=== PATIENT | female | born 1965 | race African-American/Black ===

== ENCOUNTER 2018-08-08 18:27 | Emergency (ER) | payer MEDICAID ==
[~2018-08-08] VITALS: Ht 172.7 cm; Wt 86.0 kg
[~2018-08-08 18:27] MED LIST: BENADRYL; HUM10VIA6; NEURONTIN
[2018-08-08] MEDS ORDERED: SODIUM CHLORIDE 0.9% 1,000 ML IV ONE ×2 (19:30)
[2018-08-08] MEDS ORDERED: INSULIN REGULAR (HUMULIN R) 300UNITS/3ML IV ONE (19:30)
[2018-08-08 20:17] LABS: BASOPHILS % 0.8 % (0.0-2.0); EOSINOPHILS % 3.8 % (0.0-5.0); HEMATOCRIT. 35.8 % (36.0-48.0); HEMOGLOBIN. 11.9 g/dL (12.0-16.0); LYMPHOCYTES % 21.7 % (20.0-50.0); MEAN CORPUSCULAR HEMOGLOBIN 27.9 pg (28.0-32.0); MEAN CORPUSCULAR VOLUME 84.2 fL (81.0-99.0); MEAN PLATELET VOLUME 10.7 fl (7.4-10.4); MONOCYTES % 6.1 % (2.0-8.0); NEUTROPHILS % 67.6 % (40.0-76.0); PLATELET 220 x1000/uL (130-400); RED BLOOD CELL COUNT 4.25 mill/uL (4.2-5.4); RED CELL DISTRIBUTION WIDTH 15.3 % (11.6-14.6)
[2018-08-08 20:29] LABS: BETA HYDROXYBUTYRATE 0.1 mMol/L (0.0-0.3)
[2018-08-08 22:34] VITALS: BP 126/78
== END 2018-08-08 22:35 | disposition home or self-care (01) ==
LOC: ER 18:27
DX: E11.65 Type 2 diabetes mellitus with hyperglycemia (principal); Z91.19 Patient's noncompliance with other medical treatment and regimen; E78.00 Pure hypercholesterolemia, unspecified; I10 Essential (primary) hypertension
CPT/HCPCS: 36415; 80048; 82010; 82962; 85025; 96361; 96374; 99283; J1815; J7030

== ENCOUNTER 2019-12-04 08:19 | Emergency (ER) | payer MEDICAID ==
[~2019-12-04] VITALS: Ht 165.1 cm; Wt 100.0 kg
[2019-12-04] MEDS ORDERED: ONDANSETRON HCL 4MG/2ML INJ IV STA (08:41)
[2019-12-04] MEDS ORDERED: MORPHINE SULFATE 4 MG/ML CPJ (NOT FOR IM USE) IV STA (08:41)
[2019-12-04] MEDS ORDERED: SODIUM CHLORIDE 0.9% 1,000 ML IV ONE (08:45)
[2019-12-04 09:16] LABS: BASOPHILS % 0.9 % (0.0-2.0); EOSINOPHILS % 1.8 % (0.0-5.0); HEMATOCRIT. 34.6 % (36.0-48.0); HEMOGLOBIN. 11.3 g/dL (12.0-16.0); LYMPHOCYTES % 13.1 % (20.0-50.0); MEAN CORPUSCULAR HEMOGLOBIN 27.2 pg (28.0-32.0); MEAN CORPUSCULAR VOLUME 83.2 fL (81.0-99.0); MEAN PLATELET VOLUME 10.4 fl (7.4-10.4); MONOCYTES % 6.9 % (2.0-8.0); NEUTROPHILS % 77.3 % (40.0-76.0); PLATELET 223 x1000/uL (130-400); RED BLOOD CELL COUNT 4.16 mill/uL (4.2-5.4)
[2019-12-04 09:18] LABS: CHLORIDE 112 mEq/L (98-107)
[2019-12-04 10:15] VITALS: BP 165/97
[2019-12-04] MEDS ORDERED: AMLODIPINE 5MG TABLET PO ONE (10:30)
== END 2019-12-04 11:51 | disposition home or self-care (01) ==
LOC: ER 08:30
DX: R51.9 Headache, unspecified (principal); I10 Essential (primary) hypertension; E11.9 Type 2 diabetes mellitus without complications; E78.00 Pure hypercholesterolemia, unspecified; I16.0 Hypertensive urgency; Z87.891 Personal history of nicotine dependence; Z79.4 Long term (current) use of insulin
CPT/HCPCS: 36415; 70450; 80053; 85025; 93005; 96374; 96375; 99285; J2270; J2405; J7030

== ENCOUNTER 2020-01-12 07:35 | Emergency (ER) | payer MEDICAID ==
[~2020-01-12] VITALS: Ht 165.1 cm; Wt 100.0 kg
[2020-01-12] MEDS ORDERED: ACETAMINOPHEN WITH CODEINE 300/30MG TABLET PO ONE (07:45)
[2020-01-12] MEDS ORDERED: KETOROLAC 60MG/2ML VIAL IM ONE (07:45)
[2020-01-12 09:56] VITALS: BP 167/81
== END 2020-01-12 10:00 | disposition home or self-care (01) ==
LOC: ER 07:44
DX: M54.2 Cervicalgia (principal); E11.9 Type 2 diabetes mellitus without complications; E78.00 Pure hypercholesterolemia, unspecified; I10 Essential (primary) hypertension; V43.62XA Car passenger injured in collision with other type car in traffic accident, initial encounter; Y93.9 Activity, unspecified; Y92.410 Unspecified street and highway as the place of occurrence of the external cause; Z79.4 Long term (current) use of insulin
CPT/HCPCS: 99285; J1885

== ENCOUNTER 2021-02-25 21:01 | Inpatient (IN) | payer MEDICAID ==
[~2021-02-25] VITALS: Ht 165.1 cm; Wt 104.4 kg
[2021-02-25] MEDS ORDERED: AMLODIPINE 10MG TABLET PO ONE (22:15)
[2021-02-25 22:42] LABS: BASOPHILS % 0.8 % (0.0-2.0); EOSINOPHILS % 4.3 % (0.0-5.0); HEMATOCRIT. 39.3 % (36.0-48.0); HEMOGLOBIN. 12.6 g/dL (12.0-16.0); LYMPHOCYTES % 9.5 % (20.0-50.0); MEAN CORPUSCULAR HEMOGLOBIN 27.4 pg (28.0-32.0); MEAN CORPUSCULAR VOLUME 85.5 fL (81.0-99.0); MEAN PLATELET VOLUME 10.3 fl (7.4-10.4); MONOCYTES % 7.1 % (2.0-8.0); NEUTROPHILS % 78.3 % (40.0-76.0); PLATELET 214 x1000/uL (130-400); RED BLOOD CELL COUNT 4.59 mill/uL (4.2-5.4); RED CELL DISTRIBUTION WIDTH 15.9 % (11.6-14.6)
[2021-02-25 22:49] LABS: CHLORIDE 91 mEq/L (98-107)
[2021-02-25 22:58] LABS: BETA HYDROXYBUTYRATE 0.2 mMol/L (0.0-0.3)
[2021-02-25 23:30] LABS: CLARITY URINE CLOUDY (CLEAR); COLOR URINE YELLOW (YELLOW); KETONES URINE NEGATIVE (NEGATIVE); LEUKOCYTE ESTERASE URINE NEGATIVE (NEGATIVE); NITRITE URINE NEGATIVE (NEGATIVE); OCCULT BLOOD URINE 1+ (NEGATIVE); PROTEIN URINE 3+ (NEGATIVE); SPECIFIC GRAVITY URINE 1.019 (1.005-1.030); UROBILINOGEN URINE 0.2 E.U./dL (0.2-1.0)
[2021-02-25] MEDS ORDERED: LACTATED RINGERS 2,000 ML IV STA (23:40)
[2021-02-25] MEDS ORDERED: INSULIN REGULAR (HUMULIN R) 300UNITS/3ML VIAL IV ONE (23:45)
[2021-02-25] MEDS ORDERED: INSULIN GLARGINE UD 100 UNITS/ML SYR SUBCUT ONE (23:45)
[2021-02-26] MEDS ORDERED: DEXTROSE 50% WATER 50ML SYRINGE IV PRN (01:30)
[2021-02-26] MEDS ORDERED: IPRATROPIUM/ALBUTEROL 0.5-3(2.5)MG/3ML NEB HHN PRN (01:30)
[2021-02-26] MEDS ORDERED: ACETAMINOPHEN 325MG TABLET PO PRN (01:30)
[2021-02-26] MEDS ORDERED: ONDANSETRON HCL 4MG/2ML INJ IV PRN (01:30)
[2021-02-26] MEDS: BLOOD SUGAR DIAGNOSTIC STRIP TEST SCH ×18 (03:31→20:47)
[2021-02-26] MEDS: CLONIDINE 0.1MG TABLET PO PRN ×2 (04:24→14:51)
[2021-02-26] MEDS ORDERED: INSULIN LISPRO 100 UNITS/ML SUBCUT NR (04:30)
[2021-02-26 08:08] LABS: CHLORIDE 98 mEq/L (98-107)
[2021-02-26 08:10] LABS: BASOPHILS % 0.9 % (0.0-2.0); EOSINOPHILS % 5.5 % (0.0-5.0); HEMOGLOBIN. 10.9 g/dL (12.0-16.0); LYMPHOCYTES % 18.8 % (20.0-50.0); MEAN CORPUSCULAR HEMOGLOBIN 27.9 pg (28.0-32.0); MEAN PLATELET VOLUME 9.5 fl (7.4-10.4); MONOCYTES % 8.1 % (2.0-8.0); NEUTROPHILS % 66.7 % (40.0-76.0); PLATELET 210 x1000/uL (130-400); RED BLOOD CELL COUNT 3.92 mill/uL (4.2-5.4); RED CELL DISTRIBUTION WIDTH 15.9 % (11.6-14.6)
[2021-02-26] MEDS ORDERED: ENOXAPARIN 30MG/0.3ML SYR SUBCUT SCH (09:00)
[2021-02-26] MEDS: INSULIN LISPRO 100 UNITS/ML SUBCUT SCH ×6 (09:16→21:47)
[2021-02-26] MEDS ORDERED: INSULIN GLARGINE UD 100 UNITS/ML SYR SUBCUT SCH (10:30)
[2021-02-26 12:38] LABS: PHOSPHORUS 3.3 mg/dL (2.5-4.9)
[2021-02-26] MEDS: CLOPIDOGREL 75MG TABLET PO SCH (12:40)
[2021-02-26] MEDS: ASPIRIN 81MG TABLET PO SCH (12:40)
[2021-02-26] MEDS: HYDRALAZINE HCL 10MG TABLET PO SCH ×2 (14:51→21:10)
[2021-02-26] MEDS: HEPARIN 5000 UNITS/ML VIAL SUBCUT SCH (21:09)
[2021-02-26] MEDS: ATORVASTATIN CALCIUM 40MG TABLET PO SCH (21:10)
[2021-02-26] MEDS: INSULIN GLARGINE UD 100 UNITS/ML SYR SUBCUT SCH (22:40)
[2021-02-27] MEDS: BLOOD SUGAR DIAGNOSTIC STRIP TEST SCH ×3 (00:41→22:40)
[2021-02-27] MEDS: CLONIDINE 0.1MG TABLET PO PRN (01:06)
[2021-02-27 03:05] VITALS: BP 150/72
[2021-02-27] MEDS: HYDRALAZINE HCL 10MG TABLET PO SCH (06:10)
[2021-02-27] MEDS: INSULIN LISPRO 100 UNITS/ML SUBCUT SCH ×7 (08:45→21:00)
[2021-02-27] MEDS: ASPIRIN 81MG TABLET PO SCH (09:51)
[2021-02-27] MEDS: CLOPIDOGREL 75MG TABLET PO SCH (11:08)
[2021-02-27] MEDS: HEPARIN 5000 UNITS/ML VIAL SUBCUT SCH ×2 (11:08→21:31)
[2021-02-27 11:54] VITALS: BP 128/59
[2021-02-27] MEDS: INSULIN GLARGINE UD 100 UNITS/ML SYR SUBCUT SCH ×2 (12:07→22:59)
[2021-02-27 16:00] VITALS: BP 127/62
[2021-02-27 20:00] VITALS: BP 165/86
[2021-02-27 20:13] LABS: BASOPHILS % 0.7 % (0.0-2.0); EOSINOPHILS % 8.6 % (0.0-5.0); HEMATOCRIT. 38.5 % (36.0-48.0); HEMOGLOBIN. 12.2 g/dL (12.0-16.0); LYMPHOCYTES % 21.4 % (20.0-50.0); MEAN CORPUSCULAR HEMOGLOBIN 26.7 pg (28.0-32.0); MEAN CORPUSCULAR VOLUME 84.1 fL (81.0-99.0); MEAN PLATELET VOLUME 9.4 fl (7.4-10.4); MONOCYTES % 8.3 % (2.0-8.0); PLATELET 257 x1000/uL (130-400); RED BLOOD CELL COUNT 4.58 mill/uL (4.2-5.4); RED CELL DISTRIBUTION WIDTH 16.5 % (11.6-14.6)
[2021-02-27 20:45] LABS: CHLORIDE 106 mEq/L (98-107)
[2021-02-27 20:51] LABS: PHOSPHORUS 3.9 mg/dL (2.5-4.9)
[2021-02-27 21:12] LABS: HEPATITIS B SURFACE ANTIGEN NEGATIVE
[2021-02-27] MEDS: ATORVASTATIN CALCIUM 40MG TABLET PO SCH (21:28)
[2021-02-27] MEDS: HYDRALAZINE HCL 25MG TABLET PO SCH (21:30)
[2021-02-27 22:00] VITALS: BP 162/84
[2021-02-28 02:00] VITALS: BP 170/76
[2021-02-28] MEDS: CLONIDINE 0.1MG TABLET PO PRN (02:14)
[2021-02-28 04:00] VITALS: BP 169/95
[2021-02-28] MEDS: HYDRALAZINE HCL 25MG TABLET PO SCH (05:41)
[2021-02-28] MEDS: BLOOD SUGAR DIAGNOSTIC STRIP TEST SCH (06:23)
[2021-02-28] MEDS: CLOPIDOGREL 75MG TABLET PO SCH (08:26)
[2021-02-28] MEDS: ASPIRIN 81MG TABLET PO SCH (08:26)
[2021-02-28] MEDS: HEPARIN 5000 UNITS/ML VIAL SUBCUT SCH (08:27)
[2021-02-28] MEDS: INSULIN LISPRO 100 UNITS/ML SUBCUT SCH ×2 (08:33→08:34)
[2021-02-28] MEDS ORDERED: LIP40 PO ×2 (09:03)
[2021-02-28] MEDS ORDERED: CLOP75TA15 PO ×2 (09:03)
[2021-02-28] MEDS ORDERED: LANTUSUD SUBCUT ×2 (09:03)
[2021-02-28] MEDS ORDERED: INSLIS SUBCUT ×2 (09:03)
[2021-02-28] MEDS ORDERED: HYDR-4134 PO ×2 (09:03)
[2021-02-28 10:00] VITALS: BP 168/89
[2021-02-28] MEDS ORDERED: LOSARTAN POTASSIUM 50 MG TABLET PO SCH (15:15)
== END 2021-02-28 15:25 | disposition home or self-care (01) | DRG 199 ==
LOC: ER 21:01 → MICUSO 02-26 01:03 → EDBEDREQ 02-26 01:23 → EDBEDREQDT 02-26 01:23 → EDBEDREQTM 02-26 01:23 → 5WST 02-27 02:17
PROVIDERS: ADMIT Family Medicine Adult Medicine; ATTEND Family Medicine Adult Medicine
PROC: 5A1D70Z Performance of Urinary Filtration, Intermittent, Less than 6 Hours Per Day (ICD-10-PCS; principal; 2021-02-27)
DX: I16.0 Hypertensive urgency (principal); G93.40 Encephalopathy, unspecified; E43 Unspecified severe protein-calorie malnutrition; N18.6 End stage renal disease; E87.1 Hypo-osmolality and hyponatremia; E11.22 Type 2 diabetes mellitus with diabetic chronic kidney disease; D64.9 Anemia, unspecified; E11.65 Type 2 diabetes mellitus with hyperglycemia; I12.0 Hypertensive chronic kidney disease with stage 5 chronic kidney disease or end stage renal disease; R55 Syncope and collapse; E78.00 Pure hypercholesterolemia, unspecified; E87.5 Hyperkalemia; E78.5 Hyperlipidemia, unspecified; Z20.822 Contact with and (suspected) exposure to COVID-19; I25.10 Atherosclerotic heart disease of native coronary artery without angina pectoris; F10.20 Alcohol dependence, uncomplicated; Y90.9 Presence of alcohol in blood, level not specified; F20.9 Schizophrenia, unspecified; Z79.4 Long term (current) use of insulin; Z86.73 Personal history of transient ischemic attack (TIA), and cerebral infarction without residual deficits; Z95.5 Presence of coronary angioplasty implant and graft; Z99.2 Dependence on renal dialysis; Z68.38 Body mass index [BMI] 38.0-38.9, adult; Z82.49 Family history of ischemic heart disease and other diseases of the circulatory system
CPT/HCPCS: 36415; 71045; 76770; 80048; 80053; 80076; 81003; 82010; 82962; 83036; 83735; 84100; 84484; 85025; 86705; 86709; 86803; 87340; 87426; 93005; 93306; 99291; J1644; J1650; J1815; J7120

== ENCOUNTER 2023-04-19 05:32 | Inpatient (IN) | payer MEDICAID ==
[~2023-04-19] VITALS: Ht 170.2 cm; Wt 98.0 kg
[~2023-04-19 05:32] MED LIST changes: +AMLO5TAB88 PO; +ASPI-1406 PO; +AZIT250T12 PO; -BENADRYL; -NEURONTIN
[2023-04-19 06:43] LABS: BASOPHILS % 0.6 % (0.0-2.0); EOSINOPHILS % 6.6 % (0.0-5.0); HEMATOCRIT. 28.3 % (36.0-48.0); HEMOGLOBIN. 9.6 g/dL (12.0-16.0); LYMPHOCYTES % 12.9 % (20.0-50.0); MEAN CORPUSCULAR HEMOGLOBIN 29.3 pg (28.0-32.0); MEAN PLATELET VOLUME 10.4 fl (7.4-10.4); MONOCYTES % 10.6 % (2.0-8.0); NEUTROPHILS % 69.3 % (40.0-76.0); PLATELET 158 x1000/uL (130-400); RED BLOOD CELL COUNT 3.29 mill/uL (4.2-5.4); RED CELL DISTRIBUTION WIDTH 18.3 % (11.6-14.6); WHITE BLOOD COUNT 9.4 x1000/uL (4.5-11.0)
[2023-04-19 06:47] LABS: ALANINE AMINOTRANSFERASE 116 IU/L (10-49); ALBUMIN 4.3 g/dL (3.2-4.8); ASPARTATE AMINOTRANSFERASE 47 IU/L (<34); BILIRUBIN TOTAL 0.5 mg/dL (0.1-1.0); CALCIUM 9.1 mg/dL (8.7-10.4); CARBON DIOXIDE 27 mEq/L (21-32); CHLORIDE 100 mEq/L (98-107); GLUCOSE 198 mg/dL (70-105); POTASSIUM 4.1 mEq/L (3.5-5.1); PROTEIN TOTAL 7.4 g/dL (6.0-8.3); SODIUM 138 mEq/L (136-145); TROPONIN I HIGH SENSITIVITY 25 ng/L (3.0-34); UREA NITROGEN BLOOD 49 mg/dL (9-23)
[2023-04-19 08:14] LABS: CREATININE 6.8 mg/dL (0.6-1.0)
[2023-04-19] MEDS: HYDROCODONE/ACETAMINOPHEN 5/325MG TABLET PO ONE (09:15)
[2023-04-19] MEDS: FUROSEMIDE 40MG TABLET PO SCH (10:20)
[2023-04-19] MEDS: CLOPIDOGREL 75MG TABLET PO SCH (11:00)
[2023-04-19 12:00] VITALS: BP 173/78; PULSE 69; RESP 20; TEMP 97.8
[2023-04-19 13:04] VITALS: BP 173/78; PULSE 69; RESP 20; TEMP 97.8
[2023-04-19] MEDS ORDERED: DEXTROSE 50% WATER 50ML SYRINGE IV PRN ×2 (13:45→14:15)
[2023-04-19] MEDS ORDERED: ONDANSETRON HCL 4MG/2ML INJ IV PRN (13:45)
[2023-04-19] MEDS ORDERED: ACETAMINOPHEN 325MG TABLET PO PRN (13:45)
[2023-04-19] MEDS ORDERED: MAGNESIUM/ALUMINUM HYDROXIDE/SIMETHICONE 30ML UDC PO PRN (13:45)
[2023-04-19] MEDS ORDERED: DOCUSATE SODIUM 100MG CAPSULE PO PRN (13:45)
[2023-04-19] MEDS ORDERED: GUAIFENESIN 200MG/10ML SUGAR FREE UDC PO PRN (13:45)
[2023-04-19] MEDS ORDERED: IPRATROPIUM/ALBUTEROL 0.5-3(2.5)MG/3ML NEB HHN PRN (13:45)
[2023-04-19] MEDS ORDERED: CLONIDINE 0.1MG TABLET PO PRN (13:45)
[2023-04-19] MEDS: BLOOD SUGAR DIAGNOSTIC STRIP TEST SCH (14:05)
[2023-04-19] MEDS: INSULIN LISPRO 100 UNITS/ML SUBCUT SCH (14:12)
[2023-04-19] MEDS: CLOPIDOGREL 75MG TABLET PO NR (15:37)
[2023-04-19] MEDS: ASPIRIN 325MG EC TABLET PO NR (15:37)
[2023-04-19] MEDS: INSULIN GLARGINE 100 UNITS/ML SUBCUT SCH ×2 (15:38→20:57)
[2023-04-19 16:00] VITALS: BP 160/58; PULSE 68; RESP 18; TEMP 97.4
[2023-04-19] MEDS ORDERED: BLOOD SUGAR DIAGNOSTIC STRIP TEST SCH (16:40)
[2023-04-19] MEDS ORDERED: INSULIN LISPRO 100 UNITS/ML SUBCUT SCH (17:10)
[2023-04-19 17:49] LABS: CREATINE KINASE 348 IU/L (34-145); TROPONIN I HIGH SENSITIVITY 17 ng/L (3.0-34)
[2023-04-19] MEDS: ACETAMINOPHEN 325MG TABLET PO PRN (18:09)
[2023-04-19 18:29] LABS: HEPATITIS B SURFACE ANTIGEN NEGATIVE (Negative); HEPATITIS C AB NON REACTIVE (Neg) (Negative)
[2023-04-19 20:00] VITALS: BP 144/73; PULSE 69; RESP 19; TEMP 97.7
[2023-04-19] MEDS ORDERED: ATORVASTATIN CALCIUM 10MG TABLET PO SCH (21:00)
[2023-04-19 21:01] LABS: PHOSPHORUS 4.3 mg/dL (2.5-4.9)
[2023-04-19] MEDS: ATORVASTATIN CALCIUM 40MG TABLET PO SCH (21:21)
[2023-04-19] MEDS: GABAPENTIN 100MG CAPSULE PO SCH (21:22)
[2023-04-19] MEDS: HYDRALAZINE HCL 25MG TABLET PO SCH (23:40)
[2023-04-19] MEDS: ROPINIROLE HCL 1MG TABLET PO SCH (23:40)
[2023-04-19] MEDS: FAMOTIDINE 20MG TABLET PO SCH (23:41)
[2023-04-20] VITALS (15 sets, daily range): BP systolic 125–154; BP diastolic 42–90; PULSE 62–89; RESP 16–19; TEMP 97.4–98.7
[2023-04-20 00:16] LABS: CREATINE KINASE 294 IU/L (34-145); TROPONIN I HIGH SENSITIVITY 20 ng/L (3.0-34)
[2023-04-20 06:05] LABS: ALANINE AMINOTRANSFERASE 80 IU/L (10-49); ALBUMIN 4.1 g/dL (3.2-4.8); ASPARTATE AMINOTRANSFERASE 24 IU/L (<34); BILIRUBIN TOTAL 0.4 mg/dL (0.1-1.0); CARBON DIOXIDE 24 mEq/L (21-32); CHLORIDE 104 mEq/L (98-107); CHOLESTEROL 145 mg/dL (<200); GLUCOSE 175 mg/dL (70-105); HDL CHOLESTEROL 47 mg/dL (>65); LDL CHOLESTEROL 79 mg/dL (5-100); PHOSPHORUS 5.4 mg/dL (2.5-4.9); POTASSIUM 4.7 mEq/L (3.5-5.1); PROTEIN TOTAL 6.8 g/dL (6.0-8.3); SODIUM 139 mEq/L (136-145); THYROID STIMULATING HORMONE 1.68 uIU/mL (0.55-4.78); TRIGLYCERIDE 57 mg/dL (0-150); UREA NITROGEN BLOOD 61 mg/dL (9-23)
[2023-04-20 06:10] LABS: CREATININE 8.3 mg/dL (0.6-1.0)
[2023-04-20 06:41] LABS: BASOPHILS % 0.7 % (0.0-2.0); EOSINOPHILS % 6.9 % (0.0-5.0); HEMATOCRIT. 26.8 % (36.0-48.0); HEMOGLOBIN. 8.9 g/dL (12.0-16.0); LYMPHOCYTES % 14.8 % (20.0-50.0); MEAN CORPUSCULAR HGB CONC 33.4 g/dL (31.0-37.0); MEAN CORPUSCULAR VOLUME 87.1 fL (81.0-99.0); MEAN PLATELET VOLUME 10.6 fl (7.4-10.4); MONOCYTES % 10.9 % (2.0-8.0); NEUTROPHILS % 66.7 % (40.0-76.0); PLATELET 154 x1000/uL (130-400); RED BLOOD CELL COUNT 3.08 mill/uL (4.2-5.4); RED CELL DISTRIBUTION WIDTH 17.9 % (11.6-14.6); WHITE BLOOD COUNT 7.5 x1000/uL (4.5-11.0)
[2023-04-20] MEDS: ASPIRIN 81MG TABLET PO SCH (09:35)
[2023-04-20 10:20] LABS: T4 FREE 0.84 ng/dL (0.89-1.76)
[2023-04-20] MEDS ORDERED: LOPERAMIDE HCL 2MG CAPSULE PO PRN (11:45)
[2023-04-20 16:48] LABS: *AMPHETAMINES SCREEN URINE NEGATIVE (NEGATIVE); *BARBITURATES SCREEN URINE NEGATIVE (NEGATIVE); *BENZODIAZEPINES SCREEN URINE NEGATIVE (NEGATIVE); *COCAINE SCREEN URINE NEGATIVE (NEGATIVE); CANNABINOID URINE SCREEN NEGATIVE (NEGATIVE); ECSTASY MDMA SCREEN URINE NEGATIVE (NEGATIVE); METHADONE URINE SCREEN Neg (NEGATIVE); OPIATES URINE SCREEN NEGATIVE (NEGATIVE); PHENCYCLIDINE URINE SCREEN NEGATIVE (NEGATIVE)
[2023-04-20 17:01] LABS: CLARITY URINE CLEAR (CLEAR); COLOR URINE YELLOW (YELLOW); GLUCOSE URINE 1+ (NEGATIVE); KETONES URINE NEGATIVE (NEGATIVE); LEUKOCYTE ESTERASE URINE NEGATIVE (NEGATIVE); NITRITE URINE NEGATIVE (NEGATIVE); OCCULT BLOOD URINE NEGATIVE (NEGATIVE); PH URINE 7.5 (4.5-8.0); PROTEIN URINE 3+ (NEGATIVE); SPECIFIC GRAVITY URINE 1.011 (1.005-1.030); UROBILINOGEN URINE 0.2 E.U./dL (0.2-1.0)
[2023-04-20] MEDS: AMLODIPINE 5MG TABLET PO SCH (17:27)
[2023-04-20 17:41] LABS: BACTERIA URINE 2+; RBC URINE 0-2 /hpf (0-2); SQUAMOUS EPITHELIAL CELL URINE FEW /lpf (RARE/1+); WBC URINE 0-2 /hpf (0-2)
[2023-04-20] MEDS: ROPINIROLE HCL 1MG TABLET PO SCH (20:34)
[2023-04-20] MEDS: MELATONIN 3MG TABLET PO NR (22:27)
[2023-04-21] VITALS (7 sets, daily range): BP systolic 112–156; BP diastolic 41–54; PULSE 64–66; RESP 12–20; TEMP 97.3–98.4; O2SAT 95
[2023-04-21] MEDS: AMLODIPINE 2.5MG TABLET PO SCH (09:19)
[2023-04-21] MEDS: INSULIN GLARGINE 100 UNITS/ML SUBCUT SCH (09:23)
[2023-04-21 09:35] LABS: BASOPHILS % 0.6 % (0.0-2.0); HEMATOCRIT. 28.7 % (36.0-48.0); HEMOGLOBIN. 9.3 g/dL (12.0-16.0); LYMPHOCYTES % 14.6 % (20.0-50.0); MEAN CORPUSCULAR HEMOGLOBIN 28.7 pg (28.0-32.0); MEAN CORPUSCULAR HGB CONC 32.6 g/dL (31.0-37.0); MEAN PLATELET VOLUME 10.2 fl (7.4-10.4); MONOCYTES % 12.3 % (2.0-8.0); NEUTROPHILS % 64.5 % (40.0-76.0); PLATELET 188 x1000/uL (130-400); RED BLOOD CELL COUNT 3.26 mill/uL (4.2-5.4); RED CELL DISTRIBUTION WIDTH 18.1 % (11.6-14.6); WHITE BLOOD COUNT 7.1 x1000/uL (4.5-11.0)
[2023-04-21 09:47] LABS: CALCIUM 9.3 mg/dL (8.7-10.4); POTASSIUM 4.7 mEq/L (3.5-5.1)
[2023-04-21 09:58] LABS: CREATININE 7.4 mg/dL (0.6-1.0)
[2023-04-21] MEDS ORDERED: CLOP-31 PO (11:45)
[2023-04-21] MEDS ORDERED: ASPI-1160 PO (11:45)
[2023-04-21] MEDS ORDERED: FURO40TA5 PO (11:45)
[2023-04-21] MEDS ORDERED: LIP40 PO (11:45)
[2023-04-21] MEDS: SEVELAMER CARBONATE 800 MG TABLET PO SCH (12:10)
[2023-04-21] MEDS: INSULIN LISPRO 100 UNITS/ML SUBCUT SCH (12:19)
[2023-04-21] MEDS ORDERED: EPOETIN ALFA 4000UNITS/ML VIAL SUBCUT SCH (21:00)
[2023-04-21] MEDS ORDERED: INSULIN GLARGINE 100 UNITS/ML SUBCUT SCH (22:00)
== END 2023-04-21 18:59 | disposition home health service (06) | DRG 47 ==
LOC: ER 05:34 → EDBEDREQ 08:53 → 7EST 09:58 → EDBEDREQ 10:12 → EDBEDREQTM 10:12
PROVIDERS: ADMIT Internal Medicine; ATTEND Internal Medicine
PROC: 5A1D70Z Performance of Urinary Filtration, Intermittent, Less than 6 Hours Per Day (ICD-10-PCS; 2023-04-20)
PROC: 4A00X4Z Measurement of Central Nervous Electrical Activity, External Approach (ICD-10-PCS; principal; 2023-04-21)
DX: G45.9 Transient cerebral ischemic attack, unspecified (principal); G93.40 Encephalopathy, unspecified; I13.2 Hypertensive heart and chronic kidney disease with heart failure and with stage 5 chronic kidney disease, or end stage renal disease; E11.52 Type 2 diabetes mellitus with diabetic peripheral angiopathy with gangrene; E11.319 Type 2 diabetes mellitus with unspecified diabetic retinopathy without macular edema; D63.1 Anemia in chronic kidney disease; I69.351 Hemiplegia and hemiparesis following cerebral infarction affecting right dominant side; E11.22 Type 2 diabetes mellitus with diabetic chronic kidney disease; N18.6 End stage renal disease; L97.509 Non-pressure chronic ulcer of other part of unspecified foot with unspecified severity; E11.621 Type 2 diabetes mellitus with foot ulcer; Z99.2 Dependence on renal dialysis; I50.9 Heart failure, unspecified; G25.81 Restless legs syndrome; F32.A Depression, unspecified; E66.9 Obesity, unspecified; E11.51 Type 2 diabetes mellitus with diabetic peripheral angiopathy without gangrene; Z68.33 Body mass index [BMI] 33.0-33.9, adult; E87.8 Other disorders of electrolyte and fluid balance, not elsewhere classified; I25.10 Atherosclerotic heart disease of native coronary artery without angina pectoris; K21.9 Gastro-esophageal reflux disease without esophagitis; E78.00 Pure hypercholesterolemia, unspecified; E21.3 Hyperparathyroidism, unspecified; I95.1 Orthostatic hypotension; Z98.61 Coronary angioplasty status; Z87.891 Personal history of nicotine dependence; Z86.16 Personal history of COVID-19; Z82.49 Family history of ischemic heart disease and other diseases of the circulatory system; Z79.899 Other long term (current) drug therapy; Z79.82 Long term (current) use of aspirin; Z79.4 Long term (current) use of insulin; Z79.02 Long term (current) use of antithrombotics/antiplatelets
CPT/HCPCS: 36415; 70551; 71045; 73630; 80048; 80053; 80061; 80305; 81003; 82550; 82962; 83036; 83735; 84100; 84439; 84443; 84484; 85025; 86705; 87340; 90935; 92523; 92610; 93005; 93306; 93880; 93970; 95816; 97116; 97162; 97166; 99291; J0885; J1815